=== PATIENT | male | born 1960 | race Caucasian/White ===

== ENCOUNTER → 2016-11-28 | Outpatient (CLI) | payer MEDICARE, OTHER ==
[2016-11-28 15:28] LABS: CH 29.5; CHCM 32.7; HCT 56.1 % (39.0-53.0); HDW 2.59; HGB 17.9 gm/dL (13.0-17.5); MCHC 31.9 g/dL (31.0-37.0); MCV 90.8 fL (80.0-100.0); Mean Platelet Volume 7.9; RBC 6.17 m/uL (4.30-5.90); RDW 13.8 % (11.5-15.5); WBC 5.7 k/uL (3.8-10.6)
[2016-11-28 15:29] LABS: INR 3.1 (<1.1)
[2016-11-28 15:51] LABS: Anion Gap 10 mmol/L; Blood Urea Nitrogen 11 mg/dL (9-20); Calcium 10.2 mg/dL (8.4-10.2); Carbon Dioxide 27 mmol/L (22-30); Chloride 109 mmol/L (98-107); Glucose 109 mg/dL (74-99); Non-African American GFR(MDRD) >60 (>60 ml/min/1.73 sqM); Potassium 4.7 mmol/L (3.5-5.1); Sodium 146 mmol/L (137-145)
== END | disposition home or self-care (01) ==
LOC: LABWHC1 14:52
PROVIDERS: ATTEND Internal Medicine Clinical Cardiac Electrophysiology
DX: I48.0 Paroxysmal atrial fibrillation (principal)
CPT/HCPCS: 36415; 80048; 85027; 85610

== ENCOUNTER 2016-12-22 11:43 | Day surgery (SDC) | payer MEDICARE, OTHER ==
[~2016-12-22 11:43] MED LIST: DEXAMETHASONE SOD PHOSPHATE 10 MG/ML 1 ML VIAL IV ONE; HYDROmorphone 1 MG/ML 1 ML SYRINGE IVP PRN; LACTATED RINGERS 1,000 ML IV SCH; MIDAZOLAM 2 MG/2 ML VIAL IV PRN; ONDANSETRON 4 MG/2 ML VIAL IVP ONE; SODIUM CHLORIDE 0.9% 1,000 ML IV SCH
[2016-12-22 12:42] LABS: INR 2.9 (<1.1); Prothrombin Time 28.5 sec (9.0-12.0)
[2016-12-22] MEDS ORDERED: PROTAMINE SULFATE 10 MG/ML 5 ML VIAL IV ONE ×2 (14:25→17:17)
[2016-12-22] MEDS ORDERED: PHENYLEPHRINE-0.9% NACL SYG 1 MG/10 ML SYRINGE ONE (14:25)
[2016-12-22] MEDS ORDERED: fentaNYL (PF) 50 MCG/ML 2 ML AMP ONE (14:25)
[2016-12-22] MEDS ORDERED: MIDAZOLAM 2 MG/2 ML VIAL ONE (14:25)
[2016-12-22] MEDS ORDERED: HEPARIN SODIUM,PORCINE 5,000 UNIT/ML 1 ML VIAL ONE (14:25)
[2016-12-22] MEDS ORDERED: PROPOFOL 10 MG/ML 20 ML VIAL IV ONE (14:25)
[2016-12-22] MEDS ORDERED: ePHEDrine 50 MG/ML 1 ML AMP ONE (14:25)
[2016-12-22] MEDS ORDERED: LIDOCAINE 1% INJ 10MG/ML (20 ML MDV) ONE (14:25)
[2016-12-22] MEDS ORDERED: LIDOCAINE URO-JET JELLY 2% 5 ML KIT ONE (14:35)
[2016-12-22] MEDS ORDERED: LIDOCAINE 2% INJ 20 MG/ML SQ ONE (14:58)
[2016-12-22] MEDS ORDERED: HEPARIN SODIUM,PORCINE/D5W PMX 25,000 UNIT in DEXTROSE/WATER 1 500ML.BAG IV ONE (15:09)
[2016-12-22] MEDS ORDERED: ACETAMINOPHEN TAB 325 MG TAB PO PRN (17:16)
[2016-12-22] MEDS ORDERED: HYDROcodone/APAP 5-325MG 1 EACH TAB PO PRN (17:16)
[2016-12-22] MEDS ORDERED: SODIUM CHLORIDE 0.9% 1,000 ML IV ONE (17:18)
[2016-12-22] MEDS ORDERED: SODIUM CHLORIDE 0.9% 500 ML IV ONE (17:18)
[2016-12-22] MEDS ORDERED: IOHEXOL 350 MG/ML 100 ML BOTTLE INJ ONE (17:29)
--- NOTE | 2016-12-22 17:33 | P.PCN ---
Preoperative Diagnosis: Procedures performed ([facility] - CRYO Ablation) Invasive hemodynamic monitoring while general anesthesia, right femoral arterial line for monitoring and sampling Comprehensive diagnostic EP study CS pacing and recording Catheter the mapping of the tachycardia (NOT 3D mapping) Intracardiac echocardiography Pulmonary vein isolation with transseptal and comprehensive EPS, 33028 Procedure details Patient was brought to the EP lab in a fasting state. Written informed consent was obtained prior to the procedure. Procedure performed under general anesthesia After initial muscle relaxant use, muscle relaxants were not given thereafter in order to assess phrenic nerve during procedure Patient prepped and draped as per protocol Full cryo-set up with standard preparation of the cryoablation tools done Femoral Venous access obtained on the right and left groins Sheaths placed Diagnostic catheters for the high right atrium, phrenic nerve stimulation and pacing, His bundle, RV and coronary sinus placed Intracardiac echo catheter placed Long sheath placed in the right atrium Left and right transseptal catheterization performed under intracardiac echo guidance Intravenous heparin with aCT above 300 Later, catheter positioning and balloon positioning under intracardiac echo Baseline measurements AH interval 69, HV interval 45 Comprehensive diagnostic EP study Atrial pacing performed from the high right atrium and the coronary sinus Sinus node recovery time 1194 ms. Corrected sinus recovery times within normal limits, VA Wenckebach block 420 AV node Wenckebach block from the coronary sinus 390 Transseptal catheterization performed RA pressure 12/4/9 LA pressure 16/6/12 Transseptal catheterization performed with standard sheath. The cryoablation sheath was then placed with an over the wire exchange without any acute complications. All 4 pulmonary veins were isolated in the following sequence: Left superior followed by left inferior followed by right superior followed by right inferior The cryo-ablation balloon was placed at the os of each vein 1.5 mL of IV dye was injected to confirm an occluded vein Goal during cryoablation was to achieve -30C in the first 30 seconds. If not the balloon was repositioned to obtain this result After completion of Cryoblation with durations from 180-240 seconds, entrance block was confirmed with the Attain circular catheter in a roving fashion around the antrum of the pulmonary veins Phrenic nerve pacing was performed from the SVC, right innominate vein area and diaphragm voltage was monitored as well as manually Left superior pulmonary vein First cryoablation Duration of cryoablation lesion 3 minutes -30C achieved at 38 seconds -40C achieved at 88 seconds Minimum temperature achieved -41 Thaw time 5.8 Vein isolated yes, excellent occlusion and dye hold noted Second cryoablation Duration of cryoablation lesion 3 minutes -30C achieved at 46 Minimum temperature achieved -37 Thaw time 7 seconds Vein isolated yes Left inferior pulmonary vein First cryoablation Duration of cryoablation lesion 3 minutes -30C achieved at 39 -40C achieved at 149 Minimum temperature achieved -40 Thaw time 4 seconds Vein isolated yes Second cryoablation Duration of cryoablation lesion 3 minutes -30C achieved at 41 Minimum temperature achieved -39 Thaw time 6 seconds Vein isolated yes Right superior pulmonary vein, during phrenic nerve pacing First cryoablation Duration of cryoablation lesion 3 minutes -30C achieved at 31 -40C achieved at 45 Minimum temperature achieved -57 Thaw time 27.9 Vein isolated yes Lowest temperature in the esophagus minus 22.8C Second cryoablation none Right inferior pulmonary vein, during phrenic nerve pacing First cryoablation Duration of cryoablation lesion 60 seconds -30C achieved at 39 Minimum temperature achieved -36 Thaw time 7 seconds Vein isolated yes Lowest esophageal temperature, -27.5 Second cryoablation Duration of cryoablation lesion 90 seconds -30C achieved at 41 Minimum temperature achieved -37 Thaw time 6 seconds Vein isolated yes Lowest esophageal temperature -23 At the end of the procedure the Achieve catheter was once again used to check for entrance block Phrenic nerve stimulation was performed to confirm diaphragmatic stimulation the end of the procedure Cine fluoroscopy was performed at the very end of the procedure to confirm movement of both diaphragms with inspiration and expiration At the end of the procedure the patient was extubated Heparin was reversed Venous sheaths were removed and hemostasis assured Result Successful pulmonary vein isolation using cryo-ablation Complete entrance block in all 4 veins confirmed No evidence for phrenic nerve injury Postoperative Diagnosis: Procedure(s) Performed: Implants: Indications for Procedure: Operative Findings: Description of Procedure:
--- NOTE | 2016-12-22 17:51 | LTR ---
December 22, 2016 RE: Vinay Badillo Johnathon Dear Dr. Fernandez: I had the pleasure of seeing Vinay Badillo in electrophysiology follow-up. As you know Vinay has a history of atrial fibrillation. He is on dofetilide. He has short breakthroughs of atrial fibrillation. He underwent successful cryoablation of the pulmonary veins. He will be monitored on telemetry for 24-hours and will be discharged home thereafter. No changes in his medications at this time. He will continue Tikosyn and Coumadin. Thank you for entrusting me with care of your patient. Warm regards. Sincerely, PAM CARREON MD
[2016-12-22] MEDS ORDERED: WARFARIN 2.5 MG TAB PO SCH (18:00)
[2016-12-22] MEDS ORDERED: ACETAMINOPHEN IV (For NPO) 1,000 MG in EMPTY BAG 1 BAG IVPB ONE (18:00)
[2016-12-22] MEDS: DOFETILIDE 250 MCG CAP PO SCH (20:39)
[2016-12-22 21:40] VITALS: BMI 23.8
[2016-12-23 01:50] VITALS: RESP 18
[2016-12-23] MEDS: DOFETILIDE 250 MCG CAP PO SCH (06:34)
[2016-12-23 06:36] LABS: Anion Gap 10 mmol/L; Blood Urea Nitrogen 9 mg/dL (9-20); Calcium 9.4 mg/dL (8.4-10.2); Carbon Dioxide 22 mmol/L (22-30); Chloride 111 mmol/L (98-107); Glucose 156 mg/dL (74-99); Non-African American GFR(MDRD) >60 (>60 ml/min/1.73 sqM); Potassium 4.1 mmol/L (3.5-5.1); Sodium 143 mmol/L (137-145)
[2016-12-23] MEDS ORDERED: MAGNESIUM OXIDE 400 MG TAB PO SCH (09:00)
[2016-12-23] MEDS ORDERED: ATORVASTATIN 20 MG TAB PO SCH (09:00)
--- NOTE | 2016-12-23 12:37 | PN ---
Vinay Badillo is a 56-year-old male patient, underwent ablation for atrial fibrillation. He underwent pulmonary vein isolation with cryoablation. He is doing well today. Yesterday, he had some oozing of the groin after he got up, but his groin has remained soft. There is no hematoma, no tenderness, no pain. He denies any chest discomfort. No breathing trouble. No swallowing difficulty. He is lying comfortably in bed and he has been ambulating in the hallway. Heart sounds are S1, S2 are soft, normal. Breath sounds are normal. Abdomen is soft. Extremities are warm. IMPRESSION: 1. Persistent atrial fibrillation on dofetilide. 2. Antral isolation upon cryoablation. PLAN: Discharge home later today. Continue anticoagulation. Continue Tikosyn. No change in cardiac medications. He will follow up with Dr. Jeremias Kendall in 7 to 10 days.
[2016-12-23 14:24] VITALS: BP 99/62; PULSE 70; TEMP 97.1
== END 2016-12-23 17:07 | disposition home or self-care (01) ==
LOC: CATHEP 11:43 → 6SEL 17:13 → CATHEP 12-23 17:07
PROVIDERS: ATTEND Internal Medicine Clinical Cardiac Electrophysiology
DX: I48.0 Paroxysmal atrial fibrillation (principal); I48.1 Persistent atrial fibrillation; E78.5 Hyperlipidemia, unspecified; G71.0 Muscular dystrophy; Z88.6 Allergy status to analgesic agent; Z87.891 Personal history of nicotine dependence; Z79.01 Long term (current) use of anticoagulants; Z79.899 Other long term (current) drug therapy
CPT/HCPCS: 93662; 93609; 93656; 85347; 80048; 85610; C1894 ×3; C1769 ×3; C1730 ×4; C1759; C1893; C1733; C1766; J2001 ×2; J2250; J2720; J1644 ×2; Q9967; J3010; J2370; J2704

== ENCOUNTER → 2017-06-03 | Outpatient (CLI) | payer MEDICARE, OTHER ==
[2017-06-03 14:56] LABS: ALT 93 U/L (21-72); AST 52 U/L (17-59); Anion Gap 10 mmol/L; Blood Urea Nitrogen 10 mg/dL (9-20); Calcium 9.9 mg/dL (8.4-10.2); Carbon Dioxide 27 mmol/L (22-30); Chloride 107 mmol/L (98-107); Cholesterol 125 mg/dL (<200); Glucose 107 mg/dL (74-99); HDL Cholesterol 29 mg/dL (40-60); Magnesium 2.3 mg/dL (1.6-2.3); Non-African American GFR(MDRD) >60 (>60 ml/min/1.73 sqM); Potassium 4.5 mmol/L (3.5-5.1); Sodium 144 mmol/L (137-145)
[2017-06-03 15:01] LABS: Basophils # (A) 0.1 k/uL (0-0.2); Basophils % (A) 1 %; CH 29.3; CHCM 32.1; Eosinophils # (A) 0.2 k/uL (0-0.7); Eosinophils % (A) 5 %; HCT 51.3 % (39.0-53.0); HDW 2.57; HGB 16.4 gm/dL (13.0-17.5); Luc # (Auto) 0.18; Luc % (Auto) 4; Lymphocytes # (A) 1.9 k/uL (1.0-4.8); Lymphocytes % (A) 39 %; MCH 29.3 pg (25.0-35.0); MCV 91.8 fL (80.0-100.0); Mean Platelet Volume 8.3; Monocytes # (A) 0.3 k/uL (0-1.0); Monocytes % (A) 6 %; Neutrophils # (A) 2.2 k/uL (1.3-7.7); Neutrophils % (A) 45 %; RBC 5.58 m/uL (4.30-5.90); RDW 15.3 % (11.5-15.5); WBC 4.9 k/uL (3.8-10.6); WBC (Perox) 4.82
== END | disposition home or self-care (01) ==
LOC: LABWHC1 13:28
PROVIDERS: ATTEND Internal Medicine
DX: E74.39 Other disorders of intestinal carbohydrate absorption (principal); E78.5 Hyperlipidemia, unspecified; R94.5 Abnormal results of liver function studies; R53.83 Other fatigue; Z51.81 Encounter for therapeutic drug level monitoring
CPT/HCPCS: 36415; 80048; 80061; 82607; 83036; 83735; 84403; 84439; 84443; 84450; 84460; 85025

== ENCOUNTER → 2017-06-09 | Outpatient (CLI) | payer MEDICARE, OTHER | END | disposition home or self-care (01) | LOC: LABWHC1 08:07 | PROVIDERS: ATTEND Internal Medicine | DX: E78.5 Hyperlipidemia, unspecified (principal); E74.39 Other disorders of intestinal carbohydrate absorption; R74.8 Abnormal levels of other serum enzymes; R53.83 Other fatigue; Z51.81 Encounter for therapeutic drug level monitoring | CPT/HCPCS: 36415; 82533 ==

== ENCOUNTER → 2017-12-02 | Outpatient (CLI) | payer MEDICARE, OTHER ==
[2017-12-02 19:06] LABS: Anion Gap 13 mmol/L; Blood Urea Nitrogen 10 mg/dL (9-20); Calcium 9.9 mg/dL (8.4-10.2); Carbon Dioxide 24 mmol/L (22-30); Chloride 107 mmol/L (98-107); Glucose 117 mg/dL (74-99); Magnesium 2.3 mg/dL (1.6-2.3); Potassium 4.3 mmol/L (3.5-5.1); Sodium 144 mmol/L (137-145)
== END | disposition home or self-care (01) ==
LOC: LABWHC1 16:27
PROVIDERS: ATTEND Internal Medicine Clinical Cardiac Electrophysiology
DX: I48.91 Unspecified atrial fibrillation (principal); Z79.899 Other long term (current) drug therapy
CPT/HCPCS: 36415; 80048; 83735